=== PATIENT | male | born 1990 | race Caucasian/White ===

== ENCOUNTER 2023-01-04 19:51 | Emergency (ER) | payer OTHER, SELFPAY ==
[2023-01-04] VITALS (20 sets, daily range): BP systolic 117–131; BP diastolic 80–82; PULSE 54–83; RESP 13–22; TEMP 36.3; O2SAT 95–98
--- NOTE | 2023-01-04 19:55 | XR_ITS ---
The [address] [address] Patient Name: ZEYAD MCGILL MRN: [id number] date: 1990 Sex: M Assigned Patient Location: ER Current Patient Location: ER Accession/Order Number: [id number] Exam Date: 01/04/2023 20:20 Report Date: 01/04/2023 21:32 At the request of: CHETNA CASTRO Procedure: XR foot LT min 3V IMAGES REVIEWED: XR foot LT min 3V, XR ankle LT min 3V, XR wrist LT min 3V COMPARISON: None available. CLINICAL INDICATION: injury FINDINGS/IMPRESSION: Acute moderately comminuted intra-articular mildly displaced fracture of the left distal radius. Acute ulnar styloid fracture demonstrating 1 cm displacement. Otherwise the left wrist appears intact. Acute fracture-subluxation injuries involving the left fourth and fifth TMT joints with acute comminuted displaced intra-articular fracture of the cuboid demonstrating significant disruption of the distal cuboid articular surface. Fracture of the fourth metatarsal base suspected. Recommend follow-up CT left foot to better evaluate the disruption of the fourth and fifth TMT joint spaces and better evaluate for subtle nondisplaced midfoot fractures in this region. Acute impacted fracture of the left third metatarsal head-neck with apparent intra-articular extension. Left ankle appears intact. Electronically authenticated by: LYNNE BRIDGES Date: 01/04/2023 21:32
--- NOTE | 2023-01-04 19:55 | XR_ITS ---
The [address] [address] Patient Name: ZEYAD MCGILL MRN: [id number] date: 1990 Sex: M Assigned Patient Location: ER Current Patient Location: ER Accession/Order Number: [id number] Exam Date: 01/04/2023 20:20 Report Date: 01/04/2023 21:32 At the request of: CHETNA CASTRO Procedure: XR wrist LT min 3V IMAGES REVIEWED: XR foot LT min 3V, XR ankle LT min 3V, XR wrist LT min 3V COMPARISON: None available. CLINICAL INDICATION: injury FINDINGS/IMPRESSION: Acute moderately comminuted intra-articular mildly displaced fracture of the left distal radius. Acute ulnar styloid fracture demonstrating 1 cm displacement. Otherwise the left wrist appears intact. Acute fracture-subluxation injuries involving the left fourth and fifth TMT joints with acute comminuted displaced intra-articular fracture of the cuboid demonstrating significant disruption of the distal cuboid articular surface. Fracture of the fourth metatarsal base suspected. Recommend follow-up CT left foot to better evaluate the disruption of the fourth and fifth TMT joint spaces and better evaluate for subtle nondisplaced midfoot fractures in this region. Acute impacted fracture of the left third metatarsal head-neck with apparent intra-articular extension. Left ankle appears intact. Electronically authenticated by: LYNNE BRIDGES Date: 01/04/2023 21:32
--- NOTE | 2023-01-04 19:55 | XR_ITS ---
The [address] [address] Patient Name: ZEYAD MCGILL MRN: [id number] date: 1990 Sex: M Assigned Patient Location: ER Current Patient Location: ER Accession/Order Number: [id number] Exam Date: 01/04/2023 20:20 Report Date: 01/04/2023 21:32 At the request of: CHETNA CASTRO Procedure: XR ankle LT min 3V IMAGES REVIEWED: XR foot LT min 3V, XR ankle LT min 3V, XR wrist LT min 3V COMPARISON: None available. CLINICAL INDICATION: injury FINDINGS/IMPRESSION: Acute moderately comminuted intra-articular mildly displaced fracture of the left distal radius. Acute ulnar styloid fracture demonstrating 1 cm displacement. Otherwise the left wrist appears intact. Acute fracture-subluxation injuries involving the left fourth and fifth TMT joints with acute comminuted displaced intra-articular fracture of the cuboid demonstrating significant disruption of the distal cuboid articular surface. Fracture of the fourth metatarsal base suspected. Recommend follow-up CT left foot to better evaluate the disruption of the fourth and fifth TMT joint spaces and better evaluate for subtle nondisplaced midfoot fractures in this region. Acute impacted fracture of the left third metatarsal head-neck with apparent intra-articular extension. Left ankle appears intact. Electronically authenticated by: LYNNE BRIDGES Date: 01/04/2023 21:32
--- NOTE | 2023-01-04 19:55 | CT_ITS ---
The [address] [address] Patient Name: ZYEAD MCGILL MRN: [id number] date: 1990 Sex: M Assigned Patient Location: ER Current Patient Location: ER Accession/Order Number: [id number] Exam Date: 01/04/2023 20:20 Report Date: 01/04/2023 21:27 At the request of: CHETNA CASTRO Procedure: CT head/brain wo con EXAM: CT head/brain wo con, CT facial bones wo con, CT cervical spine wo con HISTORY: injury COMPARISON: None. TECHNIQUE: Axial CT scans through the head, facial bones and cervical spine were obtained without IV contrast administration. Dose reduction techniques were achieved by using: automated exposure control and/or adjustment of mA and /or kV according to patient size and/or use of iterative reconstruction technique. CT BRAIN FINDINGS: There is no evidence of acute intracranial hemorrhage or abnormal extra-axial fluid collection. No mass effect or midline shift is seen. There is no evidence of large acute territorial infarction. There is no hydrocephalus. No definite acute fracture is identified. There is moderate left high parietal scalp hematoma CT/CT head/brain wo con IMPRESSION: No CT evidence of acute intracranial abnormality. Moderate left high parietal scalp hematoma. CT FACIAL FINDINGS: No acute fracture or posttraumatic malalignment. The globes are intact bilaterally. There is no retrobulbar hematoma. The soft tissues are unremarkable. The visualized paranasal sinuses show no air-fluid level. Mastoid air cells are clear. IMPRESSION: No acute abnormality. CT CERVICAL SPINE FINDINGS: No acute fracture or posttraumatic malalignment is seen. The dens and lateral masses of C1 are symmetric. There is straightening of the normal cervical lordotic curvature. The prevertebral soft tissue space appears normal. There are a few small low-attenuation nodules in bilateral thyroid gland. There are a few prominent level 2 cervical lymph nodes are essentially. Visualized lung apices are clear. IMPRESSION: No visualized acute cervical spine abnormality. Straightening of cervical lordosis, may be related to positioning or muscle spasm. Incidental small low-attenuation thyroid nodules which can be further evaluated with outpatient thyroid ultrasound exam. Electronically authenticated by: TERRI UNLU Date: 01/04/2023 21:27
--- NOTE | 2023-01-04 19:55 | CT_ITS ---
The [address] [address] Patient Name: ZEYAD MCGILL MRN: [id number] date: 1990 Sex: M Assigned Patient Location: ER Current Patient Location: ER Accession/Order Number: [id number] Exam Date: 01/04/2023 20:20 Report Date: 01/04/2023 21:27 At the request of: CHETNA CASTRO Procedure: CT cervical spine wo con EXAM: CT head/brain wo con, CT facial bones wo con, CT cervical spine wo con HISTORY: injury COMPARISON: None. TECHNIQUE: Axial CT scans through the head, facial bones and cervical spine were obtained without IV contrast administration. Dose reduction techniques were achieved by using: automated exposure control and/or adjustment of mA and /or kV according to patient size and/or use of iterative reconstruction technique. CT BRAIN FINDINGS: There is no evidence of acute intracranial hemorrhage or abnormal extra-axial fluid collection. No mass effect or midline shift is seen. There is no evidence of large acute territorial infarction. There is no hydrocephalus. No definite acute fracture is identified. There is moderate left high parietal scalp hematoma CT/CT cervical spine wo con IMPRESSION: No CT evidence of acute intracranial abnormality. Moderate left high parietal scalp hematoma. CT FACIAL FINDINGS: No acute fracture or posttraumatic malalignment. The globes are intact bilaterally. There is no retrobulbar hematoma. The soft tissues are unremarkable. The visualized paranasal sinuses show no air-fluid level. Mastoid air cells are clear. IMPRESSION: No acute abnormality. CT CERVICAL SPINE FINDINGS: No acute fracture or posttraumatic malalignment is seen. The dens and lateral masses of C1 are symmetric. There is straightening of the normal cervical lordotic curvature. The prevertebral soft tissue space appears normal. There are a few small low-attenuation nodules in bilateral thyroid gland. There are a few prominent level 2 cervical lymph nodes are essentially. Visualized lung apices are clear. IMPRESSION: No visualized acute cervical spine abnormality. Straightening of cervical lordosis, may be related to positioning or muscle spasm. Incidental small low-attenuation thyroid nodules which can be further evaluated with outpatient thyroid ultrasound exam. Electronically authenticated by: TERRI UNLU Date: 01/04/2023 21:27
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
--- NOTE | 2023-01-04 20:02 | CT_ITS ---
The [address] [address] Patient Name: ZEYAD MCGILL MRN: [id number] date: 1990 Sex: M Assigned Patient Location: ER Current Patient Location: ER Accession/Order Number: [id number] Exam Date: 01/04/2023 20:20 Report Date: 01/04/2023 21:27 At the request of: CHETNA CASTRO Procedure: CT facial bones wo con EXAM: CT head/brain wo con, CT facial bones wo con, CT cervical spine wo con HISTORY: injury COMPARISON: None. TECHNIQUE: Axial CT scans through the head, facial bones and cervical spine were obtained without IV contrast administration. Dose reduction techniques were achieved by using: automated exposure control and/or adjustment of mA and /or kV according to patient size and/or use of iterative reconstruction technique. CT BRAIN FINDINGS: There is no evidence of acute intracranial hemorrhage or abnormal extra-axial fluid collection. No mass effect or midline shift is seen. There is no evidence of large acute territorial infarction. There is no hydrocephalus. No definite acute fracture is identified. There is moderate left high parietal scalp hematoma CT/CT facial bones wo con IMPRESSION: No CT evidence of acute intracranial abnormality. Moderate left high parietal scalp hematoma. CT FACIAL FINDINGS: No acute fracture or posttraumatic malalignment. The globes are intact bilaterally. There is no retrobulbar hematoma. The soft tissues are unremarkable. The visualized paranasal sinuses show no air-fluid level. Mastoid air cells are clear. IMPRESSION: No acute abnormality. CT CERVICAL SPINE FINDINGS: No acute fracture or posttraumatic malalignment is seen. The dens and lateral masses of C1 are symmetric. There is straightening of the normal cervical lordotic curvature. The prevertebral soft tissue space appears normal. There are a few small low-attenuation nodules in bilateral thyroid gland. There are a few prominent level 2 cervical lymph nodes are essentially. Visualized lung apices are clear. IMPRESSION: No visualized acute cervical spine abnormality. Straightening of cervical lordosis, may be related to positioning or muscle spasm. Incidental small low-attenuation thyroid nodules which can be further evaluated with outpatient thyroid ultrasound exam. Electronically authenticated by: TERRI GONGORAU Date: 01/04/2023 21:27
--- NOTE | 2023-01-04 20:11 | ECG_ITS ---
The [facility] Test Date: 2023-01-04 Pat Name: ZEYAD MCGILL Department: Room: - Gender: Male [employer]: : 1990 Requested By: [id number] Order Number: [id number] Reading MD: MIN KIMBLE Measurements Intervals [place] Rate: 76 P: 43 RI: 196 QRS: -75 QRSD: 102 T: 25 QT: 378 QTc: 408 Interpretive Statements 1100 Sinus rhythm 1574 with frequent ventricular premature complexes Inf T in III and aVF - poor baseline though 9140 abnormal rhythm ECG No previous ECG available for comparison Electronically Signed On 01-05-2023 7:13:52 EDT by MIN KIMBLE
[2023-01-04 20:18] LABS: Basophils Absolute Auto 0.1 10^3/uL (0.0-0.1); Basophils Percent Auto 0.6 % (0.2-2.0); Eosinophils Absolute Auto 0.1 10^3/uL (0.0-0.7); Eosinophils Percent Auto 1.7 % (0.9-7.0); Hemoglobin 14.7 g/dL (14.0-18.0); Immature Granulocytes Abs Auto 0.02 10^3/uL (0.00-0.03); Immature Granulocytes Pct Auto 0.3 % (0.0-0.5); Lymphocytes Absolute Auto 2.6 10^3/uL (1.2-3.8); Mean Corpuscular HGB Conc 34.2 g/dL (29.9-35.2); Mean Corpuscular Hemoglobin 29.9 pg (25.9-34.0); Mean Corpuscular Volume 87.4 fL (80.0-94.0); Mean Platelet Volume 9.3 fL (9.5-13.5); Monocytes Absolute Auto 0.6 10^3/uL (0.3-0.8); Monocytes Percent Auto 7.9 % (1.7-12.0); Neutrophils Absolute Auto 4.4 10^3/uL (1.4-6.5); Neutrophils Percent Auto 56.5 % (43.0-75.0); Platelet Count 203 10^3/uL (150-450); Red Blood Count 4.92 10^6/uL (4.70-6.10); Red Cell Distribution Width 12.4 % (11.0-15.0); White Blood Count 7.7 10^3/uL (4.0-11.0)
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
[2023-01-04 20:34] LABS: Alanine Aminotransferase 37 U/L (16-63); Albumin Level 3.7 g/dL (3.4-5.0); Alkaline Phosphatase 81 U/L (46-116); Anion Gap 9.5; Aspartate Amino Transferase 17 U/L (15-37); BUN Creatinine Ratio 16.4; Bilirubin Total 0.2 mg/dL (0.2-1.0); Calcium 8.7 mg/dL (8.5-10.1); Carbon Dioxide 30.9 mmol/L (21.0-32.0); Chloride 105 mmol/L (98-107); Estimated GFR (African America >60 (>=60); Estimated GFR (Non-African Ame >60 (>=60); Globulin 3.6 g/dL; Glucose 116 mg/dL (74-106); Potassium 3.4 mmol/L (3.5-5.1); Sodium 142 mmol/L (136-145); Total Protein 7.3 g/dL (6.4-8.2)
[2023-01-04 20:36] LABS: Troponin I High Sensitivity 4.5 pg/mL (4.0-76.1)
[2023-01-04 20:49] LABS: Ethanol <3 mg/dL
[2023-01-04] MEDS: FENTANYL CITRATE/PF 100 MCG/2 ML VIAL 50 MCG IV (20:55)
[2023-01-04] MEDS: AMOXICILLIN/POTASSIUM CLAV 1 TAB TABLET PO (22:25)
[2023-01-04] MEDS: SODIUM CHLORIDE 0.9% IRRIG SOLUTION 1,000 ML BOTTLE 1000 ML IRR (22:29)
[2023-01-04] MEDS: LIDOCAINE HCL 1%-EPINEPHRINE 1:100,000 10 ML MDV INJ (22:29)
[2023-01-04] MEDS: TRAMADOL HCL 50 MG TABLET 100 MG PO (23:20)
== END 2023-01-04 23:50 | disposition home or self-care (01) ==
PROVIDERS: Emergency Provider Internal Medicine; PCP Family Medicine
DX: S52.572A Other intraarticular fracture of lower end of left radius, initial encounter for closed fracture (principal); S52.612A Displaced fracture of left ulna styloid process, initial encounter for closed fracture; S92.212A Displaced fracture of cuboid bone of left foot, initial encounter for closed fracture; S92.332A Displaced fracture of third metatarsal bone, left foot, initial encounter for closed fracture; S01.81XA Laceration without foreign body of other part of head, initial encounter; S00.81XA Abrasion of other part of head, initial encounter; S00.03XA Contusion of scalp, initial encounter; S09.90XA Unspecified injury of head, initial encounter; E07.89 Other specified disorders of thyroid; V28.49XA Other motorcycle driver injured in noncollision transport accident in traffic accident, initial encounter; Z79.899 Other long term (current) drug therapy
CPT/HCPCS: 12011; 29125; 29515; 36415; 70450; 70486; 72125; 73110; 73610; 73630; 80053; 80320; 84484; 85025; 93005; 96374; 99285

== ENCOUNTER 2023-01-08 12:28 | Outpatient (OUT) | payer OTHER, SELFPAY | END 2023-01-08 12:29 | disposition home or self-care (01) | LOC: PST 12:29 | PROVIDERS: PCP Family Medicine; Visit Provider Orthopaedic Surgery | DX: Z01.818 Encounter for other preprocedural examination (principal); S52.592A Other fractures of lower end of left radius, initial encounter for closed fracture; S52.692A Other fracture of lower end of left ulna, initial encounter for closed fracture | CPT/HCPCS: 80048 ==

== ENCOUNTER 2023-01-10 14:28 | Outpatient (OUT) | payer OTHER, SELFPAY ==
--- NOTE | 2023-01-10 14:45 | CT_ITS ---
[address] [address] Patient Name: ZEYAD MCGILL MRN: [id number] date: 1990 Sex: M Assigned Patient Location: CT Current Patient Location: CT Accession/Order Number: [id number] Exam Date: 01/10/2023 14:35 Report Date: 01/10/2023 17:36 At the request of: ARIAS HOYOS Procedure: CT foot LT wo con EXAMINATION: CT foot LT wo con HISTORY: Fracture Cuboid Left Foot, Fracture Fifth Metatarsal Left COMPARISON: No relevant comparison available. TECHNIQUE: Multi-planar CT images were created without IV contrast. Dose reduction techniques were achieved by using automated exposure control and/or adjustment of mA and/or kV according to patient size and/or use of iterative reconstruction technique. FINDINGS: BONES: Complex intra-articular fracture at the base of the fourth metatarsal. Intra-articular fracture base of the fifth metatarsal. Lateral subluxation of the fourth and fifth metatarsals in relation to the tarsal bones. Complex/comminuted fracture of the cuboid. 7 mm fracture anterior process of the calcaneus. Complex fractures of the navicular. SOFT TISSUES: 2 soft tissue swelling EFFUSION: None visible. OTHER: Negative. CT/CT foot LT wo con IMPRESSION: Acute complex fractures of the foot as detailed above Electronically authenticated by: YOSEPH HAWKINS Date: 01/10/2023 17:36
--- NOTE | 2023-01-10 14:45 | CT_ITS ---
The [address] [address] Patient Name: ZEYAD MCGILL MRN: [id number] date: 1990 Sex: M Assigned Patient Location: CT Current Patient Location: CT Accession/Order Number: [id number] Exam Date: 01/10/2023 14:35 Report Date: 01/10/2023 15:15 At the request of: ARIAS HOYOS Procedure: CT wrist LT wo con EXAM: CT wrist LT wo con HISTORY: Distal radius and ulna fractures COMPARISON: X-rays 01/04/2023 TECHNIQUE: Axial CT imaging is performed. Sagittal and coronal reformatted/reconstructed sequencing was additionally performed FINDINGS: IMPRESSION: Comminuted dorsal displaced and dorsal angulated intra-articular fracture of the distal radius. Loss of volar tilt. Displaced and dorsal angulated fracture of the distal ulna. Associated soft tissue edema. Radiocarpal and distal radioulnar joint effusions. No visualized additional fracture, dislocation or subluxation. Electronically authenticated by: YOSEPH LOZANO Date: 01/10/2023 15:15
== END 2023-01-10 14:29 | disposition home or self-care (01) ==
LOC: CT 14:28
PROVIDERS: PCP Family Medicine; Visit Provider Orthopaedic Surgery
DX: S52.592A Other fractures of lower end of left radius, initial encounter for closed fracture (principal); S52.692A Other fracture of lower end of left ulna, initial encounter for closed fracture; S92.215A Nondisplaced fracture of cuboid bone of left foot, initial encounter for closed fracture; S92.342A Displaced fracture of fourth metatarsal bone, left foot, initial encounter for closed fracture; S92.352A Displaced fracture of fifth metatarsal bone, left foot, initial encounter for closed fracture; S92.332A Displaced fracture of third metatarsal bone, left foot, initial encounter for closed fracture
CPT/HCPCS: 73200; 73700

== ENCOUNTER 2023-01-14 11:47 | Day surgery (SDC) | payer OTHER, SELFPAY ==
[2023-01-08 12:58] VITALS: BP 137/81; PULSE 87; RESP 14; TEMP 36.8; O2SAT 97; BMI 30.4
[2023-01-14] VITALS (9 sets, daily range): BP systolic 122–140; BP diastolic 81–98; PULSE 72–98; RESP 11–17; TEMP 36.2–36.3; O2SAT 95–96; BMI 30.7
--- NOTE | 2023-01-14 | FL_ITS ---
[address] [address] Patient Name: ZEYAD MCGILL MRN: [id number] date: 1990 Sex: M Assigned Patient [facility] Current Patient Location: Accession/Order Number: [id number] Exam Date: 01/14/2023 13:40 Report Date: 01/15/2023 08:21 At the request of: ARIAS HOYOS Procedure: FL fluoroscopy <1hr NON-READ EXAM: FL fluoroscopy <1hr NON-READ HISTORY: TECHNIQUE: FINDINGS: Please see Operative Report. Electronically authenticated by: RADIOLOGIST NO Date: 01/15/2023 08:21
[2023-01-14] MEDS: LACTATED RINGER'S SOLUTION 1,000 ML 50 ML IV (12:32)
[2023-01-14] MEDS: CEFAZOLIN SODIUM/DEXTROSE,ISO 2 GM/50 ML PIGGYBACK IV (13:27)
--- NOTE | 2023-01-14 13:30 | PC.NURSE ---
TIME OUT PERFORMED PER PROTOCOL. PATIENT PROPERLY IDENTIFIED SELF WITH LISTED STAFF PRESENT. PATIENT POSITIONED PER ANESTHESIA. DR. GAITAN USED ULTRASOUND GUIDANCE TO IDENTIFY NERVE BLOCK. PATIENT CLEANED WITH CHLORAPREP, DR. GAITAN DONNED STERILE GLOVES AND LOCATED NERVE VIA ULTRASOUND. PATIENT HOOKED TO ALL SAFETY MONITORS AND OXYGEN APPLIED PER PROTOCOL PRIOR TO INITIATION OF PROCEDURE. DR. GAITAN INJECTED 20CC OF ROPIVACAINE USING ONE SIGHT. PATIENT TOLERATED PROCEDURE WELL. PATIENT CLEANED UP FOLLOWING PROCEDURE AND REPOSITIONED COMFORTABLY. CALL LIGHT LEFT IN REACH AND PATIENT STATES NO FURTHER NEEDS.
--- NOTE | 2023-01-14 15:53 | P.ORPRC_ITS ---
Procedure Note Date of procedure: 01/14/23 Pre-op diagnosis: Distal radius fracture and ulnar styloid fracture Post-op diagnosis: same as pre-op Procedure: Pre-operative Diagnosis: Left distal radius fracture, greater than 4 part intra-articular Left ulnar styloid fracture Post-operative Diagnosis: Same Procedure: 1. Open reduction internal fixation left distal radius fracture 2. Open reduction internal fixation left ulnar styloid fracture Detailed Description of Procedure: After informed consent was obtained the patient brought to the operating room where general anesthetic was administered. Preoperatively regional block was placed. A well-padded proximal arm tourniquet was placed on the right arm was prepped and draped in usual sterile fashion. The arm was elevated, exsanguinated, and the tourniquet was inflated to 200 mmHg. A 6 cm incision made overlying the flexor carpi radialis tendon overlying the distal radius. Blunt dissection was carried down through soft tissue. The flexor carpi radialis tendon was retracted ulnarly along with the flexor pollicis longus muscle and tendon. Pronator quadratus was incised in an L- shaped fashion off of the bone. Distal radius fracture was identified at this point and found to be intra-articular and comminuted. Using a combination of traction and manipulation and reduction was performed and appropriate reduction was confirmed under x-ray. A Synthes by column distal radius plate was then p laced and provisionally held into place with K wires. This was adjusted until the appropriate position was achieved under multiple fluoroscopy views. The plate was then first fixed with a 2.7 bicortical nonlocking screw in the oblong hole in the shaft. Holding the distal fragments reduced a total of 7 unicortical 2.4 mm locking screws were placed at the distal fragments followed by an additional 2 screws placed in the shaft in a bicortical locking fashion. Final x-rays in multiple planes revealed a reduced distal radius fracture with appropriate implant placement and lengths. Wound was irrigated. Pronator quadratus was repaired with an 0 Vicryl suture. Skin was closed with observable suture in layers. Attention was next turned to fixation of the significantly displaced and large ulnar styloid fracture. A 2 cm incision was made laterally over the ulnar styloid. Reduction was performed without difficulty the ulnar styloid and this was secured into position with a K wire. Final x-rays in multiple planes revealed a reduced ulnar styloid fracture with appropriate implant placement. Wound was irrigated and closed with absorbable suture in layers. Well-padded dressing was placed followed by a fiberglass volar splint. Turning was deflated. Patient was awakened and brought to the recovery room in stable condition. There are no intraoperative or immediate postoperative co mplications. Anesthesia: regional and General-LMA Surgeon: Maurice Gallegos Pathology: none sent Condition: stable
== END 2023-01-14 16:53 | disposition home or self-care (01) ==
PROVIDERS: PCP Family Medicine; Visit Provider Orthopaedic Surgery
PROC: (CPT 25609; principal; 2023-01-14 13:30)
DX: S52.592A Other fractures of lower end of left radius, initial encounter for closed fracture (principal); S52.692A Other fracture of lower end of left ulna, initial encounter for closed fracture; V28.49XA Other motorcycle driver injured in noncollision transport accident in traffic accident, initial encounter
CPT/HCPCS: 25609; 25652; 64417; 76000; 76942; C1713; J2704

== ENCOUNTER 2023-01-28 09:20 | Outpatient (OUT) | payer OTHER, SELFPAY ==
--- NOTE | 2023-01-28 09:22 | US_ITS ---
[address] [address] Patient Name: ZEYAD MCGILL MRN: [id number] date: 1990 Sex: M Assigned Patient Location: US Current Patient Location: [facility] Accession/Order Number: [id number] Exam Date: 01/28/2023 09:23 Report Date: 01/29/2023 08:09 At the request of: MIN KIMBLE Procedure: US thyroid EXAMINATION: US thyroid HISTORY: Thyroid nodule E04.1 COMPARISON: No relevant comparison available. FINDINGS: RIGHT LOBE: Inferior pole 10 x 8 x 6 mm TR 4 nodule. Homogeneous echotexture of thyroid lobe. Lobe size: 5.5 x 1.2 x 1.7 cm LEFT LOBE: Homogeneous echotexture with a few benign-appearing colloid cysts. Lobe size: 4.2 x 1.4 x 1.9 cm ISTHMUS: Contains a 4 mm TR 4 nodule within left side of isthmus. Homogeneous echotexture of isthmus. Thickness: 4 mm US/US thyroid IMPRESSION: 1. Small TR 4 nodule within inferior pole of right lobe and within left sided isthmus. Follow-up imaging in one year is recommended. TR4 (moderately suspicious): If > 1.0 cm, follow-up ultrasound in 1, 2, 3, and 5 years. If > 1.5 cm, fine needle aspiration (FNA). Electronically authenticated by: ARIAS DUMONT Date: 01/29/2023 08:09
== END 2023-01-28 09:21 | disposition home or self-care (01) ==
LOC: US 09:20
PROVIDERS: PCP Family Medicine; Visit Provider Family Medicine
DX: S52.592A Other fractures of lower end of left radius, initial encounter for closed fracture (principal); S52.692A Other fracture of lower end of left ulna, initial encounter for closed fracture; E04.1 Nontoxic single thyroid nodule
CPT/HCPCS: 73110; 76536

== ENCOUNTER 2023-01-28 09:23 | Outpatient (OUT) | payer OTHER, SELFPAY ==
--- NOTE | 2023-01-28 09:25 | XR_ITS ---
The [address] [address] Patient Name: ZEYAD MCGILL MRN: [id number] date: 1990 Sex: M Assigned Patient Location: [facility] Current Patient Location: Accession/Order Number: [id number] Exam Date: 01/28/2023 10:00 Report Date: 01/29/2023 07:08 At the request of: ARIAS HOYOS Procedure: XR wrist LT min 3V EXAM: XR wrist LT min 3V HISTORY: Other fractures of lower end of left radius S52.592A COMPARISON: 01/04/2023 TECHNIQUE: Routine views of the XR wrist LT min 3V FINDINGS/ XR/XR wrist LT min 3V IMPRESSION: 1. Plain screw fixation of the distal radius. Additional thickening of the ulnar styloid process with minimal residual fracture displacement. No evidence for hardware complication. No new fracture identified. 2. Mild swelling about the fracture sites. 3. Normal joint spacing. Electronically authenticated by: ITA TIMMONS Date: 01/29/2023 07:08
== END 2023-01-28 09:24 | disposition home or self-care (01) ==
LOC: RAD 09:23
PROVIDERS: PCP Family Medicine; Visit Provider Orthopaedic Surgery
DX: S52.592A Other fractures of lower end of left radius, initial encounter for closed fracture (principal); S52.692A Other fracture of lower end of left ulna, initial encounter for closed fracture
CPT/HCPCS: 73110

== ENCOUNTER 2023-02-25 09:44 | Outpatient (OUT) | payer OTHER, SELFPAY ==
--- NOTE | 2023-02-25 09:46 | XR_ITS ---
The [address] [address] Patient Name: ZEYAD MCGILL MRN: [id number] date: 1990 Sex: M Assigned Patient Location: [facility] Current Patient Location: Accession/Order Number: [id number] Exam Date: 02/25/2023 10:20 Report Date: 02/26/2023 07:48 At the request of: ARIAS HOYOS Procedure: XR wrist LT min 3V EXAM: XR wrist LT min 3V HISTORY: Fracture Of Left Ulna S52.692A, Left Radius Fracture S52.592 COMPARISON: 01/28/2023 TECHNIQUE: Routine views of the XR wrist LT min 3V FINDINGS/ XR/XR wrist LT min 3V IMPRESSION: 1. Plate and screw fixation of the distal radius. Additional pinning of the ulnar styloid process fracture. Overlying casting material limits evaluation for fine bony detail although there is suggested healing at the distal radial fracture site. No new fractures are definitively seen. 2. Diffuse soft tissue swelling. 3. Normal joint spacing. Electronically authenticated by: ITA TIMMONS Date: 02/26/2023 07:48
== END 2023-02-25 09:45 | disposition home or self-care (01) ==
LOC: RAD 09:44
PROVIDERS: PCP Family Medicine; Visit Provider Orthopaedic Surgery
DX: S52.692A Other fracture of lower end of left ulna, initial encounter for closed fracture (principal); S52.592A Other fractures of lower end of left radius, initial encounter for closed fracture; M25.432 Effusion, left wrist
CPT/HCPCS: 73110

== ENCOUNTER 2023-03-14 13:55 | Outpatient (RCR) | payer OTHER, SELFPAY | END 2023-05-23 15:06 | disposition home or self-care (01) | LOC: OT 13:55 | PROVIDERS: PCP Family Medicine; Visit Provider Orthopaedic Surgery | DX: S52.692D Other fracture of lower end of left ulna, subsequent encounter for closed fracture with routine healing (principal); S52.592D Other fractures of lower end of left radius, subsequent encounter for closed fracture with routine healing | CPT/HCPCS: 97022; 97110; 97140; 97165; 97530 ==

== ENCOUNTER 2023-03-25 10:38 | Outpatient (OUT) | payer OTHER, SELFPAY ==
--- NOTE | 2023-03-25 | XR_ITS ---
[address] [address] Patient Name: ZEYAD MCGILL MRN: [id number] date: 1990 Sex: M Assigned Patient Location: RAD Current Patient Location: [facility] Accession/Order Number: [id number] Exam Date: 03/25/2023 10:44 Report Date: 03/25/2023 14:45 At the request of: ARIAS HOYOS Procedure: XR wrist LT min 3V 3 views of the left wrist INDICATION: Pain COMPARISON: 02/25/2023 XR/XR wrist LT min 3V IMPRESSION: ORIF change of the distal radius redemonstrated without overt complication. Ulnar styloid injury redemonstrated. No convincing acute/new abnormalities. Scattered mild degenerative changes. Mild diffuse soft tissue swelling. Electronically authenticated by: MICHAEL GREGORY Date: 03/25/2023 14:45
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
== END 2023-03-25 10:39 | disposition home or self-care (01) ==
LOC: RAD 10:38
PROVIDERS: PCP Family Medicine; Visit Provider Orthopaedic Surgery
DX: S52.592D Other fractures of lower end of left radius, subsequent encounter for closed fracture with routine healing (principal)
CPT/HCPCS: 73110

== ENCOUNTER 2023-04-22 10:21 | Outpatient (OUT) | payer OTHER, SELFPAY ==
--- NOTE | 2023-04-22 | XR_ITS ---
The [address] [address] Patient Name: ZEYAD MCGILL MRN: [id number] date: 1990 Sex: M Assigned Patient Location: [facility] Current Patient Location: Accession/Order Number: [id number] Exam Date: 04/22/2023 10:54 Report Date: 04/23/2023 07:19 At the request of: ARIAS HOYOS Procedure: XR wrist LT min 3V PROCEDURE: XR wrist LT min 3V COMPARISON: 03/25/2023 HISTORY: LEFT WRIST PAIN FINDINGS: BONES:Stable distal radius fracture with internal fixation utilizing a volar plate and screws. Remote ulnar styloid process fracture. Moderate degenerative changes most significant in the medial carpus SOFT TISSUES:Negative. No visible soft tissue swelling. EFFUSION:None visible. OTHER: Negative. XR/XR wrist LT min 3V IMPRESSION: Stable exam Electronically authenticated by: YOSEPH HAWKINS Date: 04/23/2023 07:19
--- OUTSIDE RECORDS SUMMARY | 2023-04-22 10:23 | XMS_ITS | CCD ---
Author Name Unknown Address [address] [facility] [place] [address] Organization [facility] Care Team Providers Care Guillotine Trimmer Name Role Phone DR MIN DURÁN Attending Unavailable DR MIN DURÁN Consulting Unavailable DR MIN DURÁN Admitting Unavailable Min Durán MD Primary Care Unavaila mikhail Webb DPM, Yonatan Benavidez Attending Unava ilable Allergies Allergy Classification Reported Allergen(s) Allergy Type Date of Onset Reaction(s) Facility (1 source) No Known Medication Allergies; Translations: [No Known Medication Allergies] Propensity to adverse reactions to drug (disorder) [facility] Repository Problems Active Problems Problem Classification Problem [...] Electronically Signed in Other Vendor System) Normal [facility] Operative Reporton 3 Operative Report Indication for [...] Jon GONGORA, Yonatan Benavidez (Surgeon - Primary) Fiber Product Cutting Machine Operator Lubna Martinez (Cpas) Brad Dowling, PGY II second assist Anesthesia General Rocky Hoover MD, Jarocho Patino (Vascular Ultrasound Technician) Malathi Andrade (Provider) Ashlee Archibald (Provider) Estimated Blood Loss Tourniquet +10 cc Urine Output Not applicable Findings Comminuted intra-articular fracture, left cuboid with subluxation of the fourth and fifth metatarsal cuboid joint as well as transverse neck fracture of third metatarsal Specimen(s) None Complications None Technique Materials: [employer] [place] bone graft, [employer] anatomic cuboid plate with corresponding 3.5 millimeter [...] blowout which was then reinforced with intra-articular [place] bone graft to reinforce and stabilize the fracture fragments. The lateral wall was then press-fit back into anatomic position and we obtained a Postini cuboid anatomic plate this was provisionally fixated with PF pins. With use of fluoroscopy in the AP oblique lateral views we proceeded with bicortical screw fixation of the cuboid filling the majority of perimeter screw holes. Intraoperative retraction was removed and AP lateral radiographs were obtained showing anatomic confucianism of the length of the cuboid with [...] bone this (more content not included)... Normal [facility] Covid-19 PCR (CVDTBH)on SARS-CoV-2 (COVID-19) RNA CAT+probe Ql (Unsp spec) Detected Invalid Interpretation Code NOT DETECTED [facility] Comment on above: Result Comment: This test is not yet jazlyn roved or cleared by the [place] FDA. When there are no FDA-approved or cleared tests available, and other criteria are met, FDA can make tests available under an emergency access mechanism called an Emergency Use Authorization (EUA). The EUA for this test is supported by the Turn Machine Operator of Health and Human Service's (HHS's) declaration [...] used). Performed By: #### C VDTB #### [facility] [address] [address] Madina Neely XR hand RT min 3V*on 021 XR hand RT min 3V* [facility] Main [place] [address] [place] [address] XRay Report Signed Patient: Espinoza Ramírez MR#: [id number] 3 : 1990 Acct:[id number] Age/Sex: 30 / M ADM Date: 09/27/20 [...] Alin Conner M.D.09/27/2020 11:22 AM Dictation Location: [place] [address] Transcribed By: [facility] 09/27/20 1122 Dictated By: Alin Conner DO 09/27/20 112 Signed By: 09/27/20 1122 [facility] Encounters Encounter Date Encounter Type Care Provider Facility Start: 01-23-2023 End: 01-23-2023 ambulatory Min Durán MD Facility:[facility] Start: 11-17-2020 End: 11-18-[address] MIN DURÁN Facility: Payers Date Payer Category Payer Unknown 1990 Unknown [id number] 1990 Unknown [id number] 1957 Unknown [id number] Summary Purpose Family History No Family History Records FoundNo Family History Records FoundNo Family History Records Found Advance Directives No Advanced Directives Records FoundNo Advanced Directives Records FoundNo Advanced Directives Records Found Additional Source Comments (unrecognized sect ion and content) No Status Records FoundNo Status Records FoundNo Status Records Found INFORMATION SOURCE (unrecogn ized section and content) DATE CREATED AUTHOR 11/29/2020 [facility] DATE CREATED AUTHOR AUTHOR'S ORGANIZ ATION 04/02/2021 [facility] DATE CREATED AUTHOR AUTHOR'S ORGANIZ ATION 01/25/2023 [facility] FOR RECORDS PERTAINING TO PATIENTS WHO ARE [...] BE BASED ON THE PRIMARY CLINICAL RECORDS. [facility] [employer] [facility]. provides no warranty or guarantee of the accuracy or completeness of information in this document.
== END 2023-04-22 10:22 | disposition home or self-care (01) ==
LOC: RAD 10:21
PROVIDERS: PCP Family Medicine; Visit Provider Orthopaedic Surgery
DX: S52.592D Other fractures of lower end of left radius, subsequent encounter for closed fracture with routine healing (principal); S52.692D Other fracture of lower end of left ulna, subsequent encounter for closed fracture with routine healing
CPT/HCPCS: 73110

== ENCOUNTER 2023-06-03 07:39 | Outpatient (OUT) | payer OTHER, SELFPAY ==
--- NOTE | 2023-06-03 | XR_ITS ---
The [address] [address] Patient Name: ZEYAD MCGILL MRN: [id number] date: 1990 Sex: M Assigned Patient Location: Current Patient Location: Accession/Order Number: [id number] Exam Date: 06/03/2023 07:46 Report Date: 06/03/2023 09:28 At the request of: ARIAS HOYOS Procedure: XR wrist LT min 3V PROCEDURE: XR wrist LT min 3V COMPARISON: 04/22/2023 HISTORY: LEFT WRIST PAIN FINDINGS: BONES:Stable complex distal radius fracture fixed with an internal plate and screws. Stable remote ulnar styloid process fracture. No new fracture or dislocation. Stable degenerative changes with joint space narrowing most significant medial carpus SOFT TISSUES:Negative. No visible soft tissue swelling. EFFUSION:None visible. OTHER: Negative. XR/XR wrist LT min 3V IMPRESSION: Stable radius and ulna fractures with internal fixation of the distal radius Electronically authenticated by: YOSEPH HAWKINS Date: 06/03/2023 09:28
--- OUTSIDE RECORDS SUMMARY | 2023-06-03 07:41 | XMS_ITS | CCD ---
Author Organization [facility] Care Team Providers Care Planetarium Sky Show Technician Name Role Phone DR MIN DURÁN Attending Unavailable DR MIN DURÁN Consulting Unavailable DR MIN DURÁN Admitting Unavailable Min Durán MD Primary Care Unavaila mikhail Webb DPM, Yonatan Benavidez Attending Unava ilable Allergies Allergy Classification Reported Allergen(s) Allergy Type Date of Onset Reaction(s) Facility (1 source) No Known Medication Allergies; Translations: [No Known Medication Allergies] Propensity to adverse reactions to drug (disorder) [facility] Repository Problems Active Problems Problem Classification [...] Electronically Signed in Other Vendor System) Normal [facility] Operative Reporton 11-15-202 3 Operative Report Indication for Surgery Comminuted [...] pinning third metatarsal neck fracture, left Surgeon(s) Yonatan Webb DPM (Surgeon - Primary) Public Administration Professor Avel MARVIN, Lubna Wallace (Residential Program Manager) Brad Dowling, PGY II second assist Anesthesia General Rocky Hoover MD, Jarocho Patino (Travel Occupational Therapist) Malathi Andrade (Provider) Ashlee Arcihbald (Provider) Estimated Blood Loss Tourniquet +10 cc Urine Output Not applicable Findings Comminuted intra-articular fracture, left cuboid with subluxation of the fourth and fifth metatarsal cuboid joint as well as transverse neck fracture of third metatarsal Specimen(s) None Complications None Technique Materials: InvenSense [place] bone graft, InvenSense anatomic cuboid plate with corresponding 3.5 millimeter [...] blowout which was then reinforced with intra-articular [place] bone graft to reinforce and stabilize the fracture fragments. The lateral wall was then press-fit back into anatomic position and we obtained a InvenSense cuboid anatomic plate this was provisionally fixated with PF pins. With use of fluoroscopy in the AP oblique lateral views we proceeded with bicortical screw fixation of the cuboid filling the majority of perimeter screw holes. Intraoperative retraction was removed and AP lateral radiographs were obtained showing anatomic yazidi of the length of the cuboid with [...] bone this (more content not included)... Normal [facility] Covid-19 PCR ([facility])on SARS-CoV-2 (COVID-19) RNA CAT+probe Ql (Unsp spec) Detected Invalid Interpretation Code NOT DETECTED The [facility] Comment on above: Result Comment: This test is not yet jazlyn roved or cleared by the [place] FDA. When there are no FDA-approved or cleared tests available, and other criteria are met, FDA can make tests available under an emergency access mechanism called an Emergency Use Authorization (EUA). The EUA for this test is supported by the [employer] of Health and Human Service's (HHS's) declaration [...] used). Performed By: #### C VDTB #### [facility] [address] [place] [address] Madina Neely XR hand RT min 3V*on 021 XR hand RT min 3V* [facility] Main [place] [address] [place] [address] XRay Report Signed Patient: Espinoza Ramírez MR#: [id number] 3 : 1990 Acct:[id number] Age/Sex: 30 / M ADM Date: 09/27/20 Loc: XDCLY Room: Type: [facility] Attending Dr: Jovany Nino Ordering Provider: Jovany Nino MD Date of Service: 09/27/20 XR/XR hand RT min 3V*: RIGHT HAND INJURY Copies to: Jovany Nino MD 3 viewsRIGHT hand plain film COMPARISON:None HISTORY:RIGHT thumb pain. Fell. No fracture, dislocation or focal soft tissue abnormality seen. XR/XR hand RT min 3V* IMPRESSION:No acute findings Impression dictated by: Alin Conner M.D.09/27/2020 11:22 AM Dictation Location: [place] [address] Transcribed By: ANTOINE 09/27/20 1122 Dictated By: Alin Conner DO 09/27/20 1122 Signed By: 09/27/20 1122 [facility] Encounters Encounter Date Encounter Type Care Provider Facility Start: 01-23-2023 End: 01-23-2023 ambulatory Min Durán MD Facility:[facility] Start: 11-17-2020 End: 11-18-[address] MIN DURÁN Facility: Payers Date Payer Category Payer Unknown 1990 Unknown [id number] 1990 Unknown [id number] 1957 Unknown [id number] Summary Purpose Family History No Family History Records FoundNo Family History Records FoundNo Family History Records Found Advance Directives No Advanced Directives Records FoundNo Advanced Directives Records FoundNo Advanced Directives Records Found Additional Source Comments (unrecognized sect ion and content) No Status Records FoundNo Status Records FoundNo Status Records Found INFORMATION SOURCE (unrecogn ized section and content) DATE CREATED AUTHOR 11/29/2020 The [facility] DATE CREATED AUTHOR AUTHOR'S ORGANIZ ATION 04/02/2021 [facility] DATE CREATED AUTHOR AUTHOR'S ORGANIZ ATION 01/25/2023 [facility] FOR RECORDS PERTAINING TO PATIENTS WHO [...] BE BASED ON THE PRIMARY CLINICAL RECORDS. [employer] provides no warranty or guarantee of the accuracy or completeness of information in this document.
== END 2023-06-03 07:40 | disposition home or self-care (01) ==
LOC: EC 07:39
PROVIDERS: PCP Family Medicine; Visit Provider Orthopaedic Surgery
DX: S52.592D Other fractures of lower end of left radius, subsequent encounter for closed fracture with routine healing (principal)
CPT/HCPCS: 73110

== ENCOUNTER 2024-02-12 15:30 | Outpatient (OUT) | payer OTHER, SELFPAY ==
--- NOTE | 2024-02-12 15:32 | US_ITS ---
The [address] [address] Patient Name: ZEYAD MCGILL MRN: [id number] date: 1990 Sex: M Assigned Patient Location: US Current Patient Location: Accession/Order Number: [id number] Exam Date: 02/12/2024 15:35 Report Date: 02/13/2024 07:32 At the request of: MIN KIMBLE Procedure: US thyroid EXAMINATION: US thyroid HISTORY: Thyroid Nodule COMPARISON: 01/28/2023 TECHNIQUE: Sonographic images of the thyroid gland were obtained. FINDINGS: The right thyroid lobe measures 4.9 x 1.4 x 1.8 cm. Heterogeneous echotexture with a single nodule over 5 mm. The thyroid isthmus measures 2.6 mm, no focal nodule The left thyroid lobe measures 4.2 x 1.0 x 1.9 cm. Single nodule over 5 mm. The most suspicious nodule: Right thyroid lobe. 0.9 x 0.7 x 0.7 cm. Solid, hypoechoic, wide, smooth margins, no consultations. TR 4. US/US thyroid IMPRESSION: Stable scattered subcentimeter thyroid nodules TI-RADS: TR 4 Electronically authenticated by: YOSEPH HAWKINS Date: 02/13/2024 07:32
--- OUTSIDE RECORDS SUMMARY | 2024-02-12 15:52 | XMS_ITS | CCD ---
Author Organization [facility] Care Team Providers Care Pantograph Operator Name Role Phone DR MIN DURÁN Attending Unavailable DR MIN DURÁN Consulting Unavailable DR MIN DURÁN Admitting Min Leach MD Primary Care Unavaila mikhail Webb DPM, Yonatan Benavidez Attending Unava ilable Unavailable Primary Care Provider UnavailJAIME Bansal Attending Unavailable JAIME CERVANTES Attending Unavailable Allergies Allergy Classification Reported Allergen(s) Allergy Type Date of Onset Reaction(s) Facility (1 source) No Known Medication Allergies; Translations: [No Known Medication Allergies] Propensity to adverse reactions to drug (disorder) [facility] Repository Medications Current Medications Medication Drug Class(es) Dates Sig (Normalized) Sig (Original) gatifloxacin 5 mg/ml ophthalmic solution (3 sources) Quinolone Antimicrobial Start: 12-25-2023 take 1 drop(s) into the eye(s) every hour gatifloxacin (Zymar) 0.5 % solution ophthalmic solution Indications: Corneal ulcer of right eye Administer 1 drop into both eyes every 1 (one) hour while awake 3 mL 5 12/25/2023 Active Problems Active Problems Problem Classification Problem Date Documented Da te Episodic/Chronic Other eye disorders (5 sources) Ulcer of cornea of right eye; Translations: [Unspecified corneal ulcer, right eye] Onset: 12-25-2023 12-25-2023 Episodic Unclassified (2 sources) ENCOUNT FOR SCREENING FOR [...] Signed, Electronically Signed in Other Vendor System) [facility] Operative Reporton Operative Report Indication for Surgery Comminuted left [...] Surgeon(s) Yonatan Webb DPM (Surgeon - Primary) Compensation And Benefits Advisor Lubna Martinez (Third Rail Installer) Brad Dowling, PGY II second assist Anesthesia General Rocky Hoover MD, Jarocho Patino (Administrative Intern) Malathi Andrade (Provider) Ashlee Archibald (Provider) Estimated Blood Loss Tourniquet +10 cc Urine Output Not applicable Findings Comminuted intra-articular fracture, left cuboid with subluxation of the fourth and fifth metatarsal cuboid joint as well as transverse neck fracture of third metatarsal Specimen(s) None Complications None Technique Materials: Feedjit D[place] bone graft, Feedjit anatomic cuboid plate with corresponding 3.5 millimeter [...] blowout which was then reinforced with intra-articular Dundy bone graft to reinforce and stabilize the fracture fragments. The lateral wall was then press-fit back into anatomic position and we obtained a Feedjit cuboid anatomic plate this was provisionally fixated with PF pins. With use of fluoroscopy in the AP oblique lateral views we proceeded with bicortical screw fixation of the cuboid filling the majority of perimeter screw holes. Intraoperative retraction was removed and AP lateral radiographs were obtained showing anatomic oriental orthodox of the length of the cuboid with [...] bone this (more content not included)... Normal [facility] Covid[facility]19 [facility] SARS-CoV-2 (COVID-19) RNA CAT+probe Ql (Unsp spec) Detected Invalid Interpretation Code NOT DETECTED [facility] Comment on above: Result Comment: This test is not yet jazlyn roved or cleared by the [place] FDA. When there are no FDA-approved or cleared tests available, and other criteria are met, FDA can make tests available under an emergency access mechanism called an Emergency Use Authorization (EUA). The EUA for this test is supported by the [place] of Health and Human Service's (HHS's) declaration [...] longer be used). Performed By: #### [facility] #### [facility] [address] [id number] Madina Neely XR hand RT min 3V*on 021 XR hand RT min 3V* [facility] [place] [address] XRay Report Signed Patient: Espinoza Ramírez MR#: [id number] 3 : 1990 Acct:[id number] Age/Sex: 30 / M ADM Date: 09/27/20 Loc: XDCLY Room: Type: [facility] REF Attending Dr: Jovany Nino Ordering Provider: [...] Alin Conner M.D.09/27/2020 11:22 AM Dictation Location: [place] [address] Transcribed By: [facility] 09/27/20 1122 Dictated By: Alin Conner DO 09/27/20 1122 Signed By: 09/27/20 1122 [facility] Encounters Encounter Date Encounter Type Care Provider Facility Start: 12-27-2023 End: 12-27-2023 Bamboo flowsheet Jaime Cervantes DO Work Phone: [facility] Start: 12-27-2023 End: 12-27-2023 Bamboo flowsheet Jaime Cervantes DO Work Phone: [facility] Start: 12-27-2023 End: 12-27-2023 ambulatory JAIME CERVANTES Not Available Start: 12-25-2023 End: 12-25-2023 Bamboo flowsheet Jaime Cervantes DO Work Phone: [facility] Start: 12-25-2023 End: 12-25-2023 Bamboo flowsheet Jaime Cervantes DO Work Phone: [facility] Start: 12-25-2023 End: 12-25-2023 Office outpatient new 45 minutes Jaime Cervantes DO Work Phone: [facility] Comment on above: Corneal ulcer of rig ht eye (Primary Dx) Start: 12-25-2023 End: 12-25-2023 ambulatory JAIME CERVANTES Not Available Start: 01-23-2023 End: 01-23-2023 ambulatory Min Durán MD Facility:[facility] Start: 11-17-2020 End: 11-18-[address] MIN DURÁN Facility:[facility] Procedures Date Procedure Procedure Detail Performing Clinician Start: 12-27-2023 End: 12-27-2023 Ophth medical xm&eval intermediate estab pt Corneal ulcer of right eye Jaime Cervantes DO Work Phone: Comment on above: Corneal ulcer of rig ht eye (Primary Dx) Plan of Treatment Date Care Activity Detail Author Start: 12-25-2023 End: 12-25-2023 Patient encounter procedure 12/25/2023 10:45 AM EDT Office Visit [facility] [address] [place] [id number] Jaime Cervantes, [address] [place] [address] Arrived [facility] Comment on above: Arrived Payers Date Payer Category Payer Private Health Insurance [facility] [id number] 2023 Unknown [id number] 2012 Unknown 1990 Unknown [id number] 1990 Unknown [id number] 1990 Unknown [id number] 1992 Unknown [id number] 1959 Unknown [id number] Social History Date Type Detail Facility Tobacco smoking stat [facility] Tobacco smoking consumption unknown [facility] Start: 1990 Sex assigned at Not on file [facility] Gender identity Not on file [facility] Start: 12-25-2023 Tobacco smoking stat [facility] Never smoked tobacco [facility] History of Present illness Narrative 12-27-2023 Jaime Cervantes DO - 12/27/2023 11:15 AM EDT Note Date & Type Note Facility 12-27-2023 History of Presen t illness Narrative Images from the original note were not included. Assessment/Plan Diagnoses and all orders for this visit: Corneal ulcer of right eye - Looks much better. Well controlled. Cont Moxifloxacin right eye (OD) QID fro 1 wk. No contact lens (CL) over that time. Then can return to them in 1 wk. This shouldn't feel any more painful, call with increase, also call with worse light sensitivity or decreased vision. documented in this encounter [facility] Healthcare History of Present illness Narrative 12-25-2023 Jaime Cervantes DO - 12/25/2023 10:45 AM EDT Note Date & Type Note Facility 12-25-2023 History of Presen t illness Narrative Images from the original note were not included. Assessment/Plan Diagnoses and all orders for this visit: Corneal ulcer of right eye - Condition d/w pt. He wears daily disposable Cls. No contact lens (CL) usage until healed. Begin Gatifloxacin right eye (OD) q1hr [place] today then q2hr tomorrow and follow up in 2 days. documented in this encounter [facility] Evaluation note Note Date & Type Note Facility Evaluation note Diagnosis Corneal ulcer of right eye- Primary documented in this encounter [facility] Summary Purpose Family History No Family History Records FoundNo Family History Records FoundNo Family History Records FoundNo Family History Records Found Advance Directives No Advanced Directives Records FoundNo Advanced Directives Records FoundNo Advanced Directives Records FoundNo Advanced Directives Records Found Additional Source Comments (unrecognized sect ion and content) No Status Records FoundNo Status Records FoundNo Status Records FoundNo Status Records Found INFORMATION SOURCE (unrecogn ized section and content) DATE CREATED AUTHOR 11/29/2020 [facility] DATE CREATED AUTHOR AUTHOR'S ORGANIZ ATION 04/02/2021 [facility] DATE CREATED AUTHOR AUTHOR'S ORGANIZ ATION 01/25/2023 [facility] DATE CREATED AUTHOR AUTHOR'S ORGANIZ ATION 12/27/2023 [facility] EPIC Reason for Visit (unrecogniz ed section and content) Reason Comments Eye Pain Reason Comments Follow-up FOR RECORDS PERTAINING TO PATIENTS WHO ARE [...] BE BASED ON THE PRIMARY CLINICAL RECORDS. [facility]. provides no warranty or guarantee of the accuracy or completeness of information in this document.
== END 2024-02-12 15:31 | disposition home or self-care (01) ==
LOC: US 15:30
PROVIDERS: PCP Family Medicine; Visit Provider Family Medicine
DX: E04.1 Nontoxic single thyroid nodule (principal)
CPT/HCPCS: 76536

== ENCOUNTER 2024-08-18 15:54 | Outpatient (OUT) | payer OTHER, SELFPAY ==
--- NOTE | 2024-08-18 15:56 | US_ITS ---
The [address] [address] Patient Name: ZEYAD MCGILL MRN: [id number] date: 1990 Sex: M Assigned Patient Location: US Current Patient Location: US Accession/Order Number: [id number] Exam Date: 08/18/2024 21:37 Report Date: 08/18/2024 21:42 At the request of: MIN KIMBLE MD Procedure: US thyroid Thyroid Ultrasound HISTORY: Follow-up thyroid nodule COMPARISON: 02/12/2024 The RIGHT lobe measures 4.6 x 1.2 x 1.9cm. LEFT lobe measures 4.2 x 1.3 x 2.1 cm. Isthmus has an AP dimension of 0.3cm. 9 mm right inferior solid nodule identified. 4 mm left superior solid nodule identified. 6 mm left inferior solid nodule identified.. Similar nodules compared to prior examination. 6 mm left thyroid nodule present. Likely benign. No microcalcifications identified. Symmetric blood flow of the thyroid gland identified. US/US thyroid IMPRESSION: Subcentimeter bilateral thyroid nodules. Likely benign. One-year follow-up assessment recommended. Impression dictated by: Alin Conner M.D. 08/18/2024 9:42 PM Dictation Location: [facility] Electronically authenticated by: [id number] Y Date: 08/18/2024 21:42
== END 2024-08-18 15:55 | disposition home or self-care (01) ==
LOC: US 15:54
PROVIDERS: PCP Family Medicine; Visit Provider Family Medicine
DX: E04.1 Nontoxic single thyroid nodule (principal)
CPT/HCPCS: 76536

== ENCOUNTER 2025-02-27 09:56 | Outpatient (OUT) | payer OTHER, SELFPAY ==
--- NOTE | 2025-02-27 10:03 | US_ITS ---
The [address] [address] Patient Name: ZEYAD MCGILL MRN: [id number] date: 1990 Sex: M Assigned Patient Location: US Current Patient Location: US Accession/Order Number: [id number] Exam Date: 02/27/2025 10:09 Report Date: 02/27/2025 11:21 At the request of: MIN KIMBLE MD Procedure: US thyroid Thyroid ultrasound Reason for exam: Thyroid nodule follow-up Comparison: Thyroid ultrasound 08/18/2024 Technique: Grayscale and color Doppler images of the thyroid gland were obtained. Findings: Right lobe measures 5.1 x 1.2 x 1.8 cm. The isthmus measures 4.3 x 1.1 x 1.7 cm. Isthmus measures 4.3 mm. No evidence of hyperemia seen on color Doppler imaging. 3 hypoechoic nodules are seen involving the thyroid gland largest measuring 10 x 6 x 8 mm involving the inferior pole of the right lobe. No microcalcifications are noted. Nodules are grossly unchanged in size given differences in measuring technique. US/US thyroid Impression: Multinodular thyroid gland, grossly unchanged from the prior study. Repeat ultrasound in one year suggested. Impression dictated by: Kishore Khan Jr., D.O. 02/27/2025 11:21 AM Dictation Location: [email or web address] Electronically authenticated by: [id number] Y Date: 02/27/2025 11:21
== END 2025-02-27 09:57 | disposition home or self-care (01) ==
PROVIDERS: PCP Family Medicine; Visit Provider Family Medicine
DX: E04.1 Nontoxic single thyroid nodule (principal); E04.2 Nontoxic multinodular goiter
CPT/HCPCS: 76536